=== PATIENT | male | born 2000 | race American Indian/Alaskan Native ===

== ENCOUNTER 2020-10-17 08:00 | Outpatient (CLI) | payer OTHER | END 2020-10-17 08:30 | disposition home or self-care (01) | LOC: PPH VACUNA 08:00 | DX: Z23 Encounter for immunization (principal) ==

== ENCOUNTER 2020-11-15 08:00 | Outpatient (CLI) | payer OTHER | END 2020-11-15 08:30 | disposition home or self-care (01) | LOC: PPH VACUNA 08:00 | DX: Z23 Encounter for immunization (principal) ==

== ENCOUNTER 2022-08-06 00:40 | Emergency (ER) | payer OTHER ==
[~2022-08-06] VITALS: Ht 170.2 cm; Wt 68.0 kg
== END 2022-08-06 05:37 | disposition home or self-care (01) ==
LOC: ER 00:40
DX: K52.89 Other specified noninfective gastroenteritis and colitis (principal); E86.0 Dehydration; Z91.013 Allergy to seafood